=== PATIENT | male | born 1945 | race Caucasian/White ===

== ENCOUNTER → 2016-11-23 | Outpatient (CLI) | payer MEDICARE, OTHER ==
[~2016-11-23] MED LIST: ASPI-496 PO; HYDR200T PO
== END | disposition home or self-care (01) ==
LOC: CFH 15:34
PROVIDERS: ATTEND Internal Medicine Pulmonary Disease
DX: J47.9 Bronchiectasis, uncomplicated (principal); R91.8 Other nonspecific abnormal finding of lung field; J92.9 Pleural plaque without asbestos; J32.9 Chronic sinusitis, unspecified; M47.892 Other spondylosis, cervical region; I70.0 Atherosclerosis of aorta
CPT/HCPCS: 70486; 71250

== ENCOUNTER → 2017-03-30 | Outpatient (CLI) | payer MEDICARE | END | disposition home or self-care (01) | LOC: CFH 09:18 | PROVIDERS: ATTEND Internal Medicine | DX: M25.461 Effusion, right knee (principal) ==

== ENCOUNTER → 2017-10-17 | Outpatient (CLI) | payer MEDICARE ==
[~2017-10-17] MED LIST changes: -HYDR200T PO; +HYDR200T72 PO
== END ==
LOC: CFH 13:22
PROVIDERS: ATTEND Family Medicine
DX: Z01.818 Encounter for other preprocedural examination (principal)
CPT/HCPCS: 71046

== ENCOUNTER → 2017-11-15 | Outpatient (CLI) | payer MEDICARE | END | disposition home or self-care (01) | LOC: CVU 08:35 | PROVIDERS: ATTEND Internal Medicine Cardiovascular Disease | DX: I08.1 Rheumatic disorders of both mitral and tricuspid valves (principal); I47.1 Supraventricular tachycardia | CPT/HCPCS: 93306 ==